=== PATIENT | male | born 1945 | race Caucasian/White ===

== ENCOUNTER → 2017-12-10 | Outpatient (CLI) | payer MEDICARE, OTHER ==
[~2017-12-10] MED LIST: ASPI325 PO
[2017-12-10 11:01] LABS: BASOPHILS ABSOLUTE AUTO 0.05 K/mm3 (0.00-0.23); BASOPHILS PERCENT AUTO 1 % (0-2); EOSINOPHILS ABSOLUTE AUTO 0.58 K/mm3 (0.00-0.68); EOSINOPHILS PERCENT AUTO 6 % (0-6); Hematocrit 41.7 % (37.0-53.0); Hemoglobin 14.6 g/dL (13.5-17.5); IMMATURE GRAN ABSOLUTE AUTO 0.02 K/mm3 (0.00-0.10); IMMATURE GRAN PERCENT AUTO 0 % (0-1); LYMPHOCYTES ABSOLUTE AUTO 1.59 K/mm3 (0.84-5.20); LYMPHOCYTES PERCENT AUTO 18 % (21-46); MONOCYTES ABSOLUTE AUTO 0.66 K/mm3 (0.16-1.47); MONOCYTES PERCENT AUTO 7 % (4-13); Mean Corpuscular Volume 86 fL (80-100); Mean Platelet Volume 9.7 fL (9.1-12.4); NEUTROPHILS PERCENT AUTO 68 % (41-73); Platelet Count 270 K/mm3 (150-400); RDW Coefficient Variation 13.6 % (11.7-14.2); RDW Standard Deviation 42.5 fL (35.1-46.3); Red Blood Cell Count 4.87 M/mm3 (4.30-5.90)
[2017-12-10 11:05] LABS: Albumin/Globulin Ratio 0.9 (0.8-1.8); Bilirubin, Total 0.6 mg/dL (0.1-1.0); Calcium, Blood 9.3 mg/dL (8.5-10.1); Creatinine, Blood 1.21 mg/dL (0.60-1.20); Globulin, Blood 4.5 g/dL (2.2-4.0); Potassium, Blood 4.3 mmol/L (3.5-5.5); Total Protein, Blood 8.5 g/dL (6.4-8.2)
== END | disposition home or self-care (01) ==
LOC: LAB EV 10:48 → LAB SHORT 10:48
PROVIDERS: Physician Assistant Medical
DX: L29.9 Pruritus, unspecified (principal)
CPT/HCPCS: 80053; 85025

== ENCOUNTER 2019-06-10 07:53 | Emergency (ER) | payer MEDICARE, OTHER ==
[~2019-06-10] VITALS: Ht 177.8 cm; Wt 68.0 kg
[2019-06-10 08:15] LABS: Chloride (POC) 106 mmol/L (98-108); Creatinine (POC) 1.2 mg/dL (0.8-1.3); Glucose (ISTAT POC) 100 mg/dL (70-99); Potassium (POC) 4.2 mmol/L (3.5-5.5); Sodium (POC) 139 mmol/L (135-148); Total CO2 (POC) 23 mmol/L (21-32)
[2019-06-10 08:17] LABS: Source, Urine Catheter
[2019-06-10 08:22] LABS: Bilirubin, Urine Neg (Neg); Blood, Urine Neg (Neg); Glucose Qualitative, Urine Neg (Neg); Ketones, Urine 3+ (Neg); Leukocyte Esterase, Urine Neg (Neg); Nitrite, Urine Neg (Neg); Protein, Urine 1+ (Neg); Specific Gravity, Urine 1.015 (1.003-1.022); Urobilinogen, Urine NORM (Normal); pH, Urine 6.5 (5.0-8.0)
[2019-06-10 08:45] LABS: Appearance, Urine Clear (Clear); Color, Urine Amber (P-Yellow)
== END 2019-06-10 09:41 | disposition home or self-care (01) ==
LOC: ER 07:53
PROVIDERS: Emergency Medicine
DX: R53.1 Weakness (principal); R07.89 Other chest pain; Z86.73 Personal history of transient ischemic attack (TIA), and cerebral infarction without residual deficits; Z87.891 Personal history of nicotine dependence
CPT/HCPCS: 51701; 80047; 85014; 99283-25

== ENCOUNTER 2019-06-11 11:26 | Inpatient (IN) | payer MEDICARE, OTHER ==
[~2019-06-11] VITALS: Ht 177.8 cm; Wt 62.6 kg
[2019-06-11 12:04] LABS: BASOPHILS ABSOLUTE AUTO 0.04 K/mm3 (0.00-0.23); BASOPHILS PERCENT AUTO 0 % (0-2); EOSINOPHILS ABSOLUTE AUTO 0.44 K/mm3 (0.00-0.68); EOSINOPHILS PERCENT AUTO 4 % (0-6); Hematocrit 46.8 % (37.0-53.0); Hemoglobin 15.8 g/dL (13.5-17.5); IMMATURE GRAN ABSOLUTE AUTO 0.04 K/mm3 (0.00-0.10); IMMATURE GRAN PERCENT AUTO 0 % (0-1); LYMPHOCYTES ABSOLUTE AUTO 1.29 K/mm3 (0.84-5.20); LYMPHOCYTES PERCENT AUTO 11 % (21-46); MONOCYTES ABSOLUTE AUTO 0.99 K/mm3 (0.16-1.47); MONOCYTES PERCENT AUTO 9 % (4-13); Mean Corpuscular HGB 30.4 pg (26.0-34.0); Mean Corpuscular HGB Conc 33.8 g/dL (31.5-36.5); Mean Corpuscular Volume 90 fL (80-100); Mean Platelet Volume 9.9 fL (9.1-12.4); NEUTROPHILS ABSOLUTE AUTO 8.83 K/mm3 (1.96-9.15); NEUTROPHILS PERCENT AUTO 76 % (41-73); Platelet Count 273 K/mm3 (150-400); RDW Standard Deviation 42.9 fL (35.1-46.3); White Blood Cell Count 11.63 K/mm3 (4.00-11.30)
[2019-06-11 12:28] LABS: Alanine Aminotransfer (ALT/SGP 28 U/L (12-78); Albumin, Blood 3.7 g/dL (3.4-5.0); Albumin/Globulin Ratio 0.9 (0.8-1.8); Alk Phos 76 U/L (50-136); Anion Gap 10 mmol/L (6-16); Aspartate Aminotrans (AST/SGOT 28 U/L (12-37); Bilirubin, Total 0.8 mg/dL (0.1-1.0); Blood Urea Nitrogen 17 mg/dL (8-24); Bun/Creatinine Ratio 17.1 (12.0-20.0); CO2, Blood 21 mmol/L (21-32); Chloride, Blood 106 mmol/L (98-108); Creatinine, Blood 0.99 mg/dL (0.60-1.20); Globulin, Blood 4.3 g/dL (2.2-4.0); Glomerular Filtration Rate >60 (60-); Glucose, Blood 120 mg/dL (70-99); Sodium, Blood 137 mmol/L (136-145); Troponin I <0.015 ng/mL (0.000-0.040)
--- NOTE | 2019-06-11 17:57 | NUR ---
PT ARRIVED TO ROOM FROM ER VIA STRETCHER. HE WAS ASSISTED TO BED AND ORIENTED TO HIS ROOM, CALL LIGHT AND NURSING STAFF. HE HAS SEVERAL FAMILY MEMBERS AT THE BEDSIDE. HIS SPEECH IS SLOW AND HE IS A/O X 4. HE PRESENTS WITH A VERY MILD LEFT SIDE FACIAL DROOP AND LEFT SIDE WEAKNESS. PT REPORTS THAT WHEN HE FELL IT WAS BECAUSE HE GOT DIZZY AND HE DOES REMEMEBR HITTING HIS HEAD. HE APPEARS TO HAVE DIFFICULTY SWALLOWING AND SAYS THAT HIS CAREGIVER AT HOME MAKES HIM SMOOTHIES. DR FOLEY WAS PAGED TO INQUIRE ABOUT A SPEECH EVAL AND THICK LIQUIDS WILL BE GIVEN FOR NOW TO SEE HOW PT TOLERATES THEM. HE IS ABLE TO MAKE HIS NEEDS KNOWN AND HAS HIS FAMILY AT THE BEDSIDE.
[2019-06-12 04:40] LABS: BASOPHILS ABSOLUTE AUTO 0.05 K/mm3 (0.00-0.23); BASOPHILS PERCENT AUTO 1 % (0-2); EOSINOPHILS ABSOLUTE AUTO 0.83 K/mm3 (0.00-0.68); EOSINOPHILS PERCENT AUTO 8 % (0-6); Hematocrit 42.3 % (37.0-53.0); Hemoglobin 14.3 g/dL (13.5-17.5); IMMATURE GRAN ABSOLUTE AUTO 0.04 K/mm3 (0.00-0.10); IMMATURE GRAN PERCENT AUTO 0 % (0-1); LYMPHOCYTES ABSOLUTE AUTO 1.51 K/mm3 (0.84-5.20); LYMPHOCYTES PERCENT AUTO 15 % (21-46); MONOCYTES ABSOLUTE AUTO 0.89 K/mm3 (0.16-1.47); MONOCYTES PERCENT AUTO 9 % (4-13); Mean Corpuscular HGB 30.8 pg (26.0-34.0); Mean Corpuscular HGB Conc 33.8 g/dL (31.5-36.5); Mean Corpuscular Volume 91 fL (80-100); Mean Platelet Volume 10.1 fL (9.1-12.4); NEUTROPHILS PERCENT AUTO 68 % (41-73); Platelet Count 250 K/mm3 (150-400); RDW Coefficient Variation 13.1 % (11.7-14.2); RDW Standard Deviation 44.2 fL (35.1-46.3); Red Blood Cell Count 4.65 M/mm3 (4.30-5.90); White Blood Cell Count 10.22 K/mm3 (4.00-11.30)
[2019-06-12 05:04] LABS: Alanine Aminotransfer (ALT/SGP 22 U/L (12-78); Albumin, Blood 3.1 g/dL (3.4-5.0); Albumin/Globulin Ratio 0.8 (0.8-1.8); Alk Phos 65 U/L (50-136); Anion Gap 7 mmol/L (6-16); Aspartate Aminotrans (AST/SGOT 21 U/L (12-37); Bilirubin, Total 0.6 mg/dL (0.1-1.0); Blood Urea Nitrogen 16 mg/dL (8-24); Bun/Creatinine Ratio 14.4 (12.0-20.0); CO2, Blood 23 mmol/L (21-32); Calcium, Blood 8.3 mg/dL (8.5-10.1); Chloride, Blood 110 mmol/L (98-108); Creatinine, Blood 1.11 mg/dL (0.60-1.20); Globulin, Blood 3.8 g/dL (2.2-4.0); Glomerular Filtration Rate >60 (60-); Glucose, Blood 98 mg/dL (70-99); Potassium, Blood 3.9 mmol/L (3.5-5.5); Sodium, Blood 140 mmol/L (136-145); Total Protein, Blood 6.9 g/dL (6.4-8.2); Troponin I <0.015 ng/mL (0.000-0.040)
--- NOTE | 2019-06-12 05:27 | NUR ---
SHIFT SUMMARY NO ACUTE EVENTS OVERNIGHT. PATIENT APPEARS UNABLE TO HANDLE SECRETIONS AT TIMES AND BECOMES CHOKED ON SALIVA. LEFT SIDE WEAKNESS. NO REPORTS OF PAIN. INCONTINENT. AAOX4 BUT SLOW TO RESPOND WITH GARBLED/SLURRED SPEECH. PATIENT SLEPT THROUGHOUT THE DIRECTOR OF SERVICES. WILL CONTINUE TO MONITOR.
--- NOTE | 2019-06-12 16:41 | NUR ---
SHIFT SUMMARY: PT REMAINS A/O X 4 WITH SLOW SLURRED SPEECH. HE HAS NO C/O PAIN OR DISCOMFORT. BREAKFAST WAS HELD UNTIL SPEECH EVAL WAS COMPLETED AND ST GAVE ORDERS TO MAKE PT NPO. DR BARNETT WAS CALLED AND UPDATED ON THIS RECOMENDATION AND THIS NURSE REQUESTED A DIRECTOR OF CARDIAC REHABILITATION CONSULT, DR BARNETT CONCURRED AND THE ORDER WAS GIVEN. PT WORKED WITH PT THIS MORNING AND WAS ABLE TO PARTICIPATE WELL. DIRECTOR OF CARDIAC REHABILITATION SAW PT AND MADE SOME RECOMENDATIONS THAT WERE DISCUSSED WITH THE DOCTOR WHO GAVE ORDERS FOR PPN WITH LIPDS TO START TONIGHT. PT CURRENTLY HAS N.S. RUNNING ORDERED. PT IS RESTING IN BED AND ABLE TO MAKE HIS NEEDS KNOWN. CALL LIGHT IS IN REACH.
[2019-06-13 05:02] LABS: Anion Gap 6 mmol/L (6-16); Blood Urea Nitrogen 22 mg/dL (8-24); Bun/Creatinine Ratio 20.4 (12.0-20.0); CO2, Blood 25 mmol/L (21-32); Calcium, Blood 8.1 mg/dL (8.5-10.1); Chloride, Blood 108 mmol/L (98-108); Creatinine, Blood 1.08 mg/dL (0.60-1.20); Glomerular Filtration Rate >60 (60-); Glucose, Blood 117 mg/dL (70-99); Potassium, Blood 3.8 mmol/L (3.5-5.5); Sodium, Blood 139 mmol/L (136-145)
--- NOTE | 2019-06-13 06:51 | NUR ---
Shift Summary: Patient slept well between cares. He continues to have left sided weakness, left facial droop, slurred speech, and swallowing issues. He was able to use the wall suction independently as needed. He is alert and oriented to questions. Assisted to reposition q2h throughout the night.
--- NOTE | 2019-06-13 13:42 | NUR ---
Initial palliative care consult: Mynor is a 73 year old gentleman with a history of HTN, CVAs, elevated PSA, urinary incontinence and a history of a hip fracture related to a fall. He was admitted to [facility] on 06/11/19 with a CVA. He is alert and oriented x 4 and sitting up in the chair during the consult. He has some difficulty with saying words, however if given time is able to be understood. He was evaluated by speech therapy this morning and his NPO status changed to pureed foods with honey thick liquids by spoon. He is able to swallow his secretions without coughing today. He states he lives alone and has a caregiver, Cee, who assists with housekeeping, laundry, shopping and transportation to appointments 8 am -12 pm Saturday - Saturday. He states he has had the caregiver for over a year. He reports he doesn't cook and doesn't drive. He has three adult children in the area (2 daughters and 1 son) from his third marriage and two children who live in [place] and [place] from his first marriage. He was about 1 year ago from his third of 36 years. He was tearful when talking about her and admits that he misses her very much. His lunch tray arrived during our visit and this ad writer observed him eating his meal. He was able to feed himself with minimal set up assistance of removing the lids off of his pears and apple juice. He was able to eat the pureed food and use a spoon for the honey thick liquids without difficulty. Only once did he cough when swallowing his apple juice. His voice was clear in between bites. He reports that he used to weigh about 190 pounds, and now he states he weighs about 130. He is unsure of the timeframe for his weight loss. His most recent albumin level is 3.1. He reports that his series of strokes has left him not able to taste food, so he reports that eating really isn't enjoyable. He did eat 100% of his lunch tray today. He mentioned that the MD talked to him about a feeding tube yesterday and he said he did not want one. He is able to reposition himself up in chair by pushing with his right leg. He is able to move his left arm and leg, however they are both weak and have a decreased ROM. He follows commands and has good eye contact during the visit. He states that his daughter has mentioned hospice. Per MD progress notes, family was given hospice as a possible option. He appears to be making some improvements at this time. He states "It's awfully slow" re: his progress. If he continues to show improvements, he is open to SNF for rehab. He would like to be able to go home, however he will likely need more assistance in his home than he currently has. He states he was open to hospice as a possible option because "It's round the clock care." Briefly explained hospice services and that nursing is available by phone 24 hours a day, but that hospice doesn't provide hands on care 24 hours/day. PPS 40-50% KPS 40-50% Nursing reports pt is a two person max assist with transfers at this time. Incontinent of urine. Able to feed himself and reposition himself in the chair with min. assist today. DNR status. PC will continue to follow for advanced care planning. If pt continues to improve, SNF for rehab is a possibility.
--- NOTE | 2019-06-13 17:21 | NUR ---
PT UPGRADED FROM NPO TO PUREE AND HONEY THICK WHICH HE HAS TOLERATED WELL. HE HAS BEEN UP FOR MEALS AND REQUIRES ASSITANCE AT THIS TIME DUE TO LEFT SIDED WEAKNESS. HE HAS HAD NO COMPLAINTS OF PAIN. PATIENT CONTINUES TO RECIEVE CLINIMIX THROUGH HIS IV ORAL INTAKE IS LOW. FAMILY WAS NOTIFIED OF DIET CHANGE , MESSAGE LEFT ON NUMBER GIVEN FOR WILLIAM.
--- NOTE | 2019-06-14 04:36 | NUR ---
Shift Summary Patient slept well between cares. Assisted to reposition q2h and change incontinece briefs. He continues to have left sided facial droop, slurred speech and left-sided weakness.
--- NOTE | 2019-06-14 16:39 | NUR ---
PATIENT HAS SLEPT MOST OF THE MORING . HE CONTINUES TO RECEIVE CLINIMIX. HE IS DOING WELL WITH HIS PUREE AND HONEYTHICK DIET. HE NEEDS ASSISTANCE WITH SET UP BUT CAN FEED HIMSELF. PATIENT HAS LEFT SIDE DROP BUT IS ABLE TO USE HIS LEFT ARM TO EAT.
--- NOTE | 2019-06-14 17:59 | NUR ---
Visited with Mynor this afternoon. He reports no change in his left sided weakness. He states he did well with his diet today and has no complaints. He did get up to [facility] with two person assist using a gait belt and a walker. He is able to bare some weight on his left leg and shuffle it. PC will continue to follow.
[2019-06-15 04:40] LABS: BASOPHILS ABSOLUTE AUTO 0.05 K/mm3 (0.00-0.23); BASOPHILS PERCENT AUTO 1 % (0-2); EOSINOPHILS ABSOLUTE AUTO 0.96 K/mm3 (0.00-0.68); EOSINOPHILS PERCENT AUTO 9 % (0-6); Hematocrit 39.1 % (37.0-53.0); Hemoglobin 13.1 g/dL (13.5-17.5); IMMATURE GRAN ABSOLUTE AUTO 0.05 K/mm3 (0.00-0.10); IMMATURE GRAN PERCENT AUTO 1 % (0-1); LYMPHOCYTES ABSOLUTE AUTO 1.43 K/mm3 (0.84-5.20); LYMPHOCYTES PERCENT AUTO 14 % (21-46); MONOCYTES ABSOLUTE AUTO 0.85 K/mm3 (0.16-1.47); MONOCYTES PERCENT AUTO 8 % (4-13); Mean Corpuscular HGB 30.8 pg (26.0-34.0); Mean Corpuscular HGB Conc 33.5 g/dL (31.5-36.5); Mean Corpuscular Volume 92 fL (80-100); Mean Platelet Volume 10.3 fL (9.1-12.4); NEUTROPHILS ABSOLUTE AUTO 7.18 K/mm3 (1.96-9.15); NEUTROPHILS PERCENT AUTO 68 % (41-73); Platelet Count 237 K/mm3 (150-400); RDW Standard Deviation 43.7 fL (35.1-46.3); Red Blood Cell Count 4.25 M/mm3 (4.30-5.90); White Blood Cell Count 10.52 K/mm3 (4.00-11.30)
[2019-06-15 05:07] LABS: Alanine Aminotransfer (ALT/SGP 25 U/L (12-78); Albumin/Globulin Ratio 0.8 (0.8-1.8); Alk Phos 58 U/L (50-136); Anion Gap 6 mmol/L (6-16); Aspartate Aminotrans (AST/SGOT 19 U/L (12-37); Bilirubin, Total 0.3 mg/dL (0.1-1.0); Blood Urea Nitrogen 25 mg/dL (8-24); Bun/Creatinine Ratio 24.3 (12.0-20.0); CO2, Blood 26 mmol/L (21-32); Calcium, Blood 8.3 mg/dL (8.5-10.1); Chloride, Blood 106 mmol/L (98-108); Creatinine, Blood 1.03 mg/dL (0.60-1.20); Globulin, Blood 3.7 g/dL (2.2-4.0); Glomerular Filtration Rate >60 (60-); Glucose, Blood 115 mg/dL (70-99); Potassium, Blood 4.5 mmol/L (3.5-5.5); Sodium, Blood 138 mmol/L (136-145); Total Protein, Blood 6.7 g/dL (6.4-8.2)
--- NOTE | 2019-06-15 05:24 | NUR ---
Shift Summary Patient slept well between cares. Required assistance to reposition q2h. He has been pleasant and cooperative, alert and oriented.
--- NOTE | 2019-06-15 18:50 | NUR ---
PATIENT A/OX4, SPEECH SLURRED BUT ABLE TO UNDERSTAND. L SIDED WEAKNESS. TOLERATING PUREE DIET WITH HONEY THICK LIQUIDS. NEEDS ASSISTANCE WITH MEALS. 20G IV TO L FA WNL, CLINIMIX INFUSING AT 75ML/HR. UP TO CHAIR FOR MEALS WITH FWW AND 2 ASSIST. PLAN IS TO D/C TO [facility] SOON TOMORROW.
--- NOTE | 2019-06-16 05:45 | NUR ---
SHIFT SUMMARY: VSS. AFEB. ALERT AND INTERACTING WITH STAFF. SPEECH SLOW BUT APPROPRIATE. DENIES PAIN. CONT WITH L SIDED WEAKNESS. EXPIRATORY RHONCHI TO L LOBES. 02 SATS 93% ON 2L VIA NC. HAS SLEPT MUCH OF THE NIGHT, NOT MAKING NEEDS KNOWN RATHER ASKS FOR ASSIST ONCE STAFF INITIATE. BED LOW, CALL BUTTON IN REACH.
--- NOTE | 2019-06-16 12:35 | NUR ---
Spoke with Imelda from PT. Imelda expresses concerns regarding Pt showing signs of giving up and not eating. Pt resting in bed upon arrival. Listened as Pt expresses fear and anxiety of inability to taste when he eats and not wanting to be a burden. He fears his quality of life will decrease. Pt admits to experiencing some depression right now but denies need for antidepressant. He states he does not want to take any medication due to possible side effects. Validated his concens and fears. Pt's lunch arrives and Pt refuses. Pt tearful at times throughout the visit. Suggested to have coversation with doctor regarding concerns of recovery and how his quality of life will be effective. Pt is agreeable with suggestion. Pt reports no other concerns at this time. Pt expresses appreciation of visit. Called and spoke with Dr Morales and relayed Pt's concerns and wanting to have conversation regarding recovery and quality of life. Palliative Care will remain available.
--- NOTE | 2019-06-16 16:00 | NUR ---
PATIENT D/C'D VIA W/C TRANSPORT TO [facility], REPORT CALLED TO MERNA. LUCIANOS, THIS SHIFT, ON RA. S/C PACKET SENT WITH TRANSPORT. PATIENT DENIES ANY QUESTIONS OR CONCERNS.
[2019-06-16] MEDS ORDERED: ASPI81CH PO (16:19)
[2019-06-16] MEDS ORDERED: ATOR40TA PO (16:20)
== END 2019-06-16 15:55 | DRG 65 ==
LOC: ER 11:26 → MEDS 15:42 → ENPENDDIS 06-16 14:41 → MEDS 06-16 15:55
PROVIDERS: Emergency Medicine; Family Medicine; ADMIT Family Medicine
DX: I63.9 Cerebral infarction, unspecified (principal); G81.94 Hemiplegia, unspecified affecting left nondominant side; I69.354 Hemiplegia and hemiparesis following cerebral infarction affecting left non-dominant side; Z51.5 Encounter for palliative care; I10 Essential (primary) hypertension; W19.XXXA Unspecified fall, initial encounter; Z87.891 Personal history of nicotine dependence; T17.900A Unspecified foreign body in respiratory tract, part unspecified causing asphyxiation, initial encounter
CPT/HCPCS: 36415; 70450; 80048; 80053; 84484; 85025; 85651; 92526; 92610; 93005; 93010; 93306; 93880; 97110; 97162; 97166; 97530; 97535; 99285-25; J1650; J7030

== ENCOUNTER → 2019-08-12 | Outpatient (CLI) | payer MEDICARE, OTHER ==
[~2019-08-12] MED LIST changes: +ASPI81CH PO; +ATOR40TA PO
== END ==
LOC: LAB SHORT 17:00 → LAB EV 17:00
DX: L02.91 Cutaneous abscess, unspecified (principal)
CPT/HCPCS: 87070; 87075; 87077; 87147; 87186; 87205

== ENCOUNTER → 2019-08-24 | Outpatient (CLI) | payer MEDICARE, OTHER ==
[~2019-08-24] MED LIST changes: +Acetaminophen-1 EAC1 PO; +Adult Glycerin1 EACH PR; +BISA10S PR; +CEPH500 PO; +Fleet Enema132 ML PR; +Milk Of Ma400 MG/5 M PO; +POTCHL20ER PO; +Pyridium100 MG PO
[2019-08-24 22:00] LABS: Bilirubin, Urine Neg (Neg); Blood, Urine 2+ (Neg); Glucose Qualitative, Urine Neg (Neg); Ketones, Urine Neg (Neg); Leukocyte Esterase, Urine 2+ (Neg); Nitrite, Urine Neg (Neg); Protein, Urine 1+ (Neg); Urobilinogen, Urine NORM (Normal)
[2019-08-24 22:07] LABS: Appearance, Urine Hazy (Clear); Color, Urine Yellow (P-Yellow)
[2019-08-24 22:08] LABS: Red Blood Cells, Urine 0-2 /hpf (0-2); Squamous Epithelial Cells Few /hpf (Few)
[2019-08-24 22:09] LABS: Bacteria Mod /hpf
== END | disposition home or self-care (01) ==
LOC: EDSTATUS 11:48 → LAB RH 11:49
PROVIDERS: Physician Assistant Medical
DX: N39.0 Urinary tract infection, site not specified (principal)
CPT/HCPCS: 81001; 87086

== ENCOUNTER 2019-09-10 03:32 | Inpatient (IN) | payer MEDICARE, OTHER ==
[~2019-09-10] VITALS: Ht 182.9 cm; Wt 65.1 kg
[~2019-09-10 03:32] MED LIST changes: -Acetaminophen-1 EAC1 PO; -Adult Glycerin1 EACH PR; -BISA10S PR; -CEPH500 PO; -Fleet Enema132 ML PR; -Milk Of Ma400 MG/5 M PO; -POTCHL20ER PO; -Pyridium100 MG PO
[2019-09-10 03:46] LABS: BASOPHILS ABSOLUTE AUTO 0.03 K/mm3 (0.00-0.23); BASOPHILS PERCENT AUTO 0 % (0-2); EOSINOPHILS ABSOLUTE AUTO 0.02 K/mm3 (0.00-0.68); EOSINOPHILS PERCENT AUTO 0 % (0-6); Hemoglobin 12.7 g/dL (13.5-17.5); IMMATURE GRAN ABSOLUTE AUTO 0.07 K/mm3 (0.00-0.10); IMMATURE GRAN PERCENT AUTO 0 % (0-1); LYMPHOCYTES PERCENT AUTO 7 % (21-46); MONOCYTES ABSOLUTE AUTO 0.72 K/mm3 (0.16-1.47); MONOCYTES PERCENT AUTO 4 % (4-13); Mean Corpuscular HGB 29.5 pg (26.0-34.0); Mean Corpuscular HGB Conc 32.6 g/dL (31.5-36.5); Mean Corpuscular Volume 91 fL (80-100); Mean Platelet Volume 10.9 fL (9.1-12.4); NEUTROPHILS ABSOLUTE AUTO 16.38 K/mm3 (1.96-9.15); NEUTROPHILS PERCENT AUTO 89 % (41-73); Platelet Count 230 K/mm3 (150-400); RDW Coefficient Variation 13.8 % (11.7-14.2); White Blood Cell Count 18.42 K/mm3 (4.00-11.30)
[2019-09-10] MEDS ORDERED: Acetaminophen-1 EAC1 PO (03:58)
[2019-09-10] MEDS ORDERED: BISA10S PR (03:58)
[2019-09-10] MEDS ORDERED: Fleet Enema132 ML PR (03:59)
[2019-09-10] MEDS ORDERED: Adult Glycerin1 EACH PR (04:00)
[2019-09-10] MEDS ORDERED: Milk Of Ma400 MG/5 M PO (04:01)
[2019-09-10 04:06] LABS: Albumin, Blood 2.6 g/dL (3.4-5.0); Albumin/Globulin Ratio 0.6 (0.8-1.8); Bilirubin, Total 0.6 mg/dL (0.1-1.0); Bun/Creatinine Ratio 13.7 (12.0-20.0); Calcium, Blood 8.6 mg/dL (8.5-10.1); Creatinine, Blood 1.82 mg/dL (0.60-1.20); Globulin, Blood 4.2 g/dL (2.2-4.0); Total Protein, Blood 6.8 g/dL (6.4-8.2)
[2019-09-10 08:42] LABS: Bun/Creatinine Ratio 14.6 (12.0-20.0); Calcium, Blood 8.1 mg/dL (8.5-10.1); Creatinine, Blood 1.51 mg/dL (0.60-1.20); Potassium, Blood 4.5 mmol/L (3.5-5.5)
[2019-09-10 09:10] LABS: Source, Urine Catheter
[2019-09-10 09:14] LABS: Bilirubin, Urine Neg (Neg); Blood, Urine 3+ (Neg); Glucose Qualitative, Urine 3+ (Neg); Ketones, Urine Neg (Neg); Leukocyte Esterase, Urine 3+ (Neg); Nitrite, Urine Neg (Neg); Protein, Urine 3+ (Neg); Urobilinogen, Urine NORM (Normal)
[2019-09-10 09:20] LABS: Appearance, Urine Cloudy (Clear); Color, Urine Yellow (P-Yellow)
[2019-09-10 09:23] LABS: White Blood Cells, Urine TNTC /hpf (0-5)
[2019-09-10 09:24] LABS: Bacteria Many /hpf; Squamous Epithelial Cells Rare /hpf (Few)
[2019-09-10 09:25] LABS: U Amphetamine Screen Not Detected; U Barbituate Screen Not Detected; U Benzodiazapine Screen Not Detected; U Buprenorphine Screen Not Detected; U Cannabinoids Screen DETECTED; U Cocaine Screen Not Detected; U Methadone Screen Not Detected; U Methamphetamine Screen Not Detected; U Opiates Screen Not Detected; U Oxycodone Screen Not Detected; U Propoxyphene Screen Not Detected
--- NOTE | 2019-09-10 14:35 | NUR ---
TALKED TO ABOUT DIET. ADVANCE DIET TOLERATED. DISCUSS LACTIC ACID WHICH WENT FROM 2.3 TO 5 AT 8AM. TO DRAW UPON ARRIVAL TO UNIT.
--- NOTE | 2019-09-10 18:14 | NUR ---
PATIENT ARRIVES TO FLOOR ABOUT 3PM FROM E.R. FOR ALTERED MENTAL STATIS. ALERT, ORIENTED X 3. UNSURE OF DATE. KNOWS [facility] L[facility]. HX OF CVA W/LEFT SIDED WEAKNESS. ABLE TO ANSWER ALL QUESTIONS ON ADMIT EXCEPT MEDICATIONS. WOUND LT LATERAL HIP. DRESSED.COOPERATIVE. PLEASANT. UNLABORED RESPIRATIONS.WCTM.
--- NOTE | 2019-09-10 23:47 | NUR ---
PHYSICIAN COMMUNICATION CONTACTED SABA WEBBER, THE MDM SR PHYSICIAN, TO REPORT THAT THE PATIENT WAS RETAINING URINE AND HAVING DYSURIA. PATIENT HAD 551 ML IN HIS BLADDER ACCORDING TO THE BLADDER SCAN. SABA ORDERS A STRAIGHT CATH X1 NOW AND BLADDER SCAN NEEDED.
--- NOTE | 2019-09-11 04:54 | NUR ---
SHIFT SUMMARY PATIENT ALERT AND ORIENTED. IS HAVING URINARY RETENTION THAT REQUIRED THE PATIENT TO BE STRAIGHT CATHED ONCE OVERNIGHT. BOTH IVS PATENT AND FLUSHED. BED IN LOWEST POSITION WITH WHEELS LOCKED. CALL LIGHT WITHIN REACH. REPORT GIVEN TO ONCOMING RN.
--- NOTE | 2019-09-11 09:17 | NUR ---
TALKED TO ABOUT B.P. 93/51-87. FLUIDS? LACTIC ACID WAS 2.4 THEN 5 AND THEN TREND DOWN YESTERDAY AT 3PM TO 2.4. NO LABS TODAY. ORDER NS @125/HR AND LABS OF CBC, BMP, LACTIC.
[2019-09-11 09:51] LABS: BASOPHILS ABSOLUTE AUTO 0.02 K/mm3 (0.00-0.23); BASOPHILS PERCENT AUTO 0 % (0-2); EOSINOPHILS ABSOLUTE AUTO 0.05 K/mm3 (0.00-0.68); EOSINOPHILS PERCENT AUTO 1 % (0-6); Hematocrit 39.6 % (37.0-53.0); Hemoglobin 12.8 g/dL (13.5-17.5); IMMATURE GRAN ABSOLUTE AUTO 0.03 K/mm3 (0.00-0.10); IMMATURE GRAN PERCENT AUTO 0 % (0-1); LYMPHOCYTES ABSOLUTE AUTO 0.54 K/mm3 (0.84-5.20); LYMPHOCYTES PERCENT AUTO 6 % (21-46); MONOCYTES ABSOLUTE AUTO 0.44 K/mm3 (0.16-1.47); MONOCYTES PERCENT AUTO 5 % (4-13); Mean Corpuscular HGB 29.8 pg (26.0-34.0); Mean Corpuscular HGB Conc 32.3 g/dL (31.5-36.5); Mean Corpuscular Volume 92 fL (80-100); Mean Platelet Volume 10.6 fL (9.1-12.4); NEUTROPHILS ABSOLUTE AUTO 8.71 K/mm3 (1.96-9.15); NEUTROPHILS PERCENT AUTO 89 % (41-73); Platelet Count 198 K/mm3 (150-400); RDW Standard Deviation 47.4 fL (35.1-46.3); White Blood Cell Count 9.79 K/mm3 (4.00-11.30)
[2019-09-11 10:05] LABS: Anion Gap 5 mmol/L (6-16); Blood Urea Nitrogen 13 mg/dL (8-24); Bun/Creatinine Ratio 12.7 (12.0-20.0); CO2, Blood 23 mmol/L (21-32); Calcium, Blood 8.2 mg/dL (8.5-10.1); Chloride, Blood 110 mmol/L (98-108); Creatinine, Blood 1.02 mg/dL (0.60-1.20); Glomerular Filtration Rate >60 (60-); Glucose, Blood 160 mg/dL (70-99); Potassium, Blood 3.4 mmol/L (3.5-5.5); Sodium, Blood 138 mmol/L (136-145)
--- NOTE | 2019-09-11 16:36 | NUR ---
ALERT. ORIENTED. OOB X 2 TO CHAIR. 2 PERSON MODERATE ASSIST W/GAIT BELT FROM BED TO CHAIR. POOR APPETITE DOES NOT HAVE ANY TEETH. WILL CHANGE DIET TO FULL LIQUID. RESTING MOST OF DAY. NO ACUTE CHANGES. WCTM
--- NOTE | 2019-09-12 03:09 | NUR ---
REPOSITIONED AND CHANGED WHEN INCONT HOB ELEVATED. INTERMITTENT AGITATED AFFECT AND TERSE STATEMENTS TO STAFF. RESTING QUIETLY AT THIS TIME. ISOLATION PRECAUTIONS MAINTAINED. CALL LIGHT IN REACH.
--- NOTE | 2019-09-12 12:43 | NUR ---
PATIENT DID NOT WANT TO EAT LUNCH. HE DENIED HIS TRAY WHEN IT WAS BROUGHT INTO THE ROOM. RN NOTIFIED
[2019-09-12] MEDS ORDERED: Pyridium100 MG PO (16:22)
[2019-09-12] MEDS ORDERED: CEPH500 PO (16:23)
--- NOTE | 2019-09-12 18:07 | NUR ---
Shift Summary 73 yo male, AOx3. Pt c/o pain in penis and bladder when voiding, refusing Acetaminophen, will medicated with Pyridium as needed. Plan was to discharge back to [facility] today; however, pt had declined physical therapy and therefore couldn't d/c today. After discussing with patient the need to be evaluated by phyical therapy, pt agreed and finally worked with therapy. Plan is to discharge tomorrow 09/13, med rec completed by this RN. Pt has been in bed most of this shift, poor appetite. No other concerns.
--- NOTE | 2019-09-13 04:16 | NUR ---
AWAKE AT INTERVALS THIS SHIFT, CALLED OUT A FEW TIMES FOR "HELP" AND UPON ENTERING ROOM, VOICED INCONTENENCE OF BOWEL AND BLADDER. BLADDER SCANNED AT HS, 669 CC NOTED, STRAIGHT CATHED PER FISHER NET ORDERS OBTAINED APPROX 400 CC. IVF INFUSING. ANTIBIOTICS DC'D PER MD ORDERS. POSSIBLE DC THIS AM - SEE MD ORDERS. CALL LIGHT IN REACH. CONTACT PRECAUTIONS CONTINUE.
[2019-09-13 05:38] LABS: BASOPHILS ABSOLUTE AUTO 0.04 K/mm3 (0.00-0.23); BASOPHILS PERCENT AUTO 0 % (0-2); EOSINOPHILS PERCENT AUTO 4 % (0-6); Hematocrit 41.1 % (37.0-53.0); Hemoglobin 13.5 g/dL (13.5-17.5); IMMATURE GRAN ABSOLUTE AUTO 0.05 K/mm3 (0.00-0.10); IMMATURE GRAN PERCENT AUTO 0 % (0-1); LYMPHOCYTES ABSOLUTE AUTO 1.42 K/mm3 (0.84-5.20); LYMPHOCYTES PERCENT AUTO 11 % (21-46); MONOCYTES ABSOLUTE AUTO 1.16 K/mm3 (0.16-1.47); MONOCYTES PERCENT AUTO 9 % (4-13); Mean Corpuscular HGB 29.5 pg (26.0-34.0); Mean Corpuscular HGB Conc 32.8 g/dL (31.5-36.5); Mean Corpuscular Volume 90 fL (80-100); Mean Platelet Volume 10.4 fL (9.1-12.4); NEUTROPHILS ABSOLUTE AUTO 9.65 K/mm3 (1.96-9.15); NEUTROPHILS PERCENT AUTO 75 % (41-73); Platelet Count 221 K/mm3 (150-400); RDW Coefficient Variation 13.9 % (11.7-14.2); RDW Standard Deviation 45.8 fL (35.1-46.3); Red Blood Cell Count 4.57 M/mm3 (4.30-5.90); White Blood Cell Count 12.82 K/mm3 (4.00-11.30)
[2019-09-13 06:12] LABS: Anion Gap 9 mmol/L (6-16); Blood Urea Nitrogen 6 mg/dL (8-24); Bun/Creatinine Ratio 7.6 (12.0-20.0); CO2, Blood 24 mmol/L (21-32); Calcium, Blood 8.4 mg/dL (8.5-10.1); Chloride, Blood 107 mmol/L (98-108); Creatinine, Blood 0.79 mg/dL (0.60-1.20); Glomerular Filtration Rate >60 (60-); Glucose, Blood 107 mg/dL (70-99); Potassium, Blood 3.2 mmol/L (3.5-5.5); Sodium, Blood 140 mmol/L (136-145)
--- NOTE | 2019-09-13 13:33 | NUR ---
EVANS CATHETER REPORTED TO DR. POSADAS RE BLADDER SCAN > 500 AND NIGHT NURSE REPORTING BLADDER SCAN > 500 TWICE FOR WHICH HE HAD TO STRAIGHT CATH. PER DR. POSADAS, INSERT EVANS FOR RETENTION.
[2019-09-13] MEDS ORDERED: POTCHL20ER PO (14:34)
--- NOTE | 2019-09-13 16:26 | NUR ---
Discharge Summary A/Ox3, pleasant and cooperative with care, able to make needs known. Pt d/c to [facility] with bernardo for retention purposes. Discharge paperwork sent with patient and faxed a copy to [facility]. Transported by [facility] with w/c. Report called and given to receiving nurse Bailey. Personal belongings sent with patient, IV removed.
== END 2019-09-13 16:16 | DRG 871 ==
LOC: ER 03:32 → ERHOLD 05:34 → MEDS 14:37
PROVIDERS: Emergency Medicine; Internal Medicine; ADMIT Hospitalist
DX: A40.8 Other streptococcal sepsis (principal); G93.41 Metabolic encephalopathy; G92 Toxic encephalopathy; J69.0 Pneumonitis due to inhalation of food and vomit; N17.9 Acute kidney failure, unspecified; I69.354 Hemiplegia and hemiparesis following cerebral infarction affecting left non-dominant side; N39.0 Urinary tract infection, site not specified; R65.20 Severe sepsis without septic shock; R33.8 Other retention of urine; E87.5 Hyperkalemia; E87.6 Hypokalemia; T40.7X1A Poisoning by cannabis (derivatives), accidental (unintentional), initial encounter; I10 Essential (primary) hypertension; I69.391 Dysphagia following cerebral infarction; R13.10 Dysphagia, unspecified; Z87.891 Personal history of nicotine dependence; Z66 Do not resuscitate
CPT/HCPCS: 36415; 51701; 51798; 71045; 76705; 80048; 80053; 81001; 82550; 83605; 83690; 85025; 87040; 87086; 93005; 93010; 94644; 96361-59; 96372-59; 96374-59; 96375-59; 97110; 97162; 97166; 97530; 99285-25; A9270; A9270-GY; J0696; J1644; J1815; J7030; J7050

== ENCOUNTER → 2020-12-09 | Outpatient (CLI) | payer OTHER ==
[~2020-12-09] MED LIST changes: +Acetaminophen-1 EAC1 PO; +Adult Glycerin1 EACH PR; +BISA10S PR; +CEPH500 PO; +Fleet Enema132 ML PR; +Milk Of Ma400 MG/5 M PO; +POTCHL20ER PO; +Pyridium100 MG PO
[2020-12-09 15:50] LABS: Bun/Creatinine Ratio 12.2 (12.0-20.0); Calcium, Blood 9.1 mg/dL (8.5-10.1); Creatinine, Blood 1.48 mg/dL (0.60-1.20); Potassium, Blood 3.8 mmol/L (3.5-5.5)
== END | disposition home or self-care (01) ==
LOC: LAB RH 13:10 → EDSTATUS 13:17
PROVIDERS: Physician Assistant Medical
DX: N17.9 Acute kidney failure, unspecified (principal)
CPT/HCPCS: 80048

== ENCOUNTER → 2021-03-17 | Outpatient (CLI) | payer OTHER ==
[2021-03-18 16:50] LABS: CORONAVIRUS (COVID19) CSH-NRL Negative (Negative)
== END | disposition home or self-care (01) ==
LOC: LAB RH 12:35 → EDSTATUS 15:15
PROVIDERS: Internal Medicine
DX: U07.1 COVID-19 (principal)
CPT/HCPCS: U0003

== ENCOUNTER → 2021-05-08 | Outpatient (CLI) | payer OTHER ==
[2021-05-08 17:30] LABS: Appearance, Urine Turbid (Clear); Bilirubin, Urine Neg (Neg); Blood, Urine 3+ (Neg); Color, Urine Yellow (P-Yellow); Glucose Qualitative, Urine Neg (Neg); Ketones, Urine Neg (Neg); Leukocyte Esterase, Urine 3+ (Neg); Nitrite, Urine Pos (Neg); Protein, Urine 3+ (Neg); Urobilinogen, Urine NORM (Normal)
[2021-05-08 17:42] LABS: Bacteria Many /hpf; Red Blood Cells, Urine TNTC /hpf (0-2); Squamous Epithelial Cells Rare /hpf (Few); Transitional Epithelial Cells Rare /hpf (0-Rare); White Blood Cells, Urine TNTC /hpf (0-5)
== END | disposition home or self-care (01) ==
LOC: EDSTATUS 10:39 → LAB RH 16:06
PROVIDERS: Registered Nurse Registered Nurse First Assistant
DX: N39.0 Urinary tract infection, site not specified (principal)
CPT/HCPCS: 81001; 87077; 87086; 87186

== ENCOUNTER → 2021-06-07 | Outpatient (CLI) | payer OTHER ==
[2021-06-07 16:31] LABS: Hematocrit 45.9 % (37.0-53.0); Hemoglobin 14.7 g/dL (13.5-17.5); Mean Corpuscular HGB 29.3 pg (26.0-34.0); Mean Corpuscular Volume 92 fL (80-100); Mean Platelet Volume 11.3 fL (9.1-12.4); Platelet Count 158 K/mm3 (150-400); RDW Coefficient Variation 14.4 % (11.7-14.2); RDW Standard Deviation 48.6 fL (35.1-46.3); Red Blood Cell Count 5.01 M/mm3 (4.30-5.90); White Blood Cell Count 6.23 K/mm3 (4.00-11.30)
[2021-06-07 16:32] LABS: Appearance, Urine Clear (Clear); Bilirubin, Urine Neg (Neg); Blood, Urine 3+ (Neg); Color, Urine Yellow (P-Yellow); Glucose Qualitative, Urine Neg (Neg); Ketones, Urine Neg (Neg); Leukocyte Esterase, Urine 1+ (Neg); Nitrite, Urine Neg (Neg); Protein, Urine 1+ (Neg); Specific Gravity, Urine 1.015 (1.003-1.022); Urobilinogen, Urine NORM (Normal)
[2021-06-07 17:12] LABS: Renal Epithelial Few /hpf (0-Rare)
[2021-06-07 17:13] LABS: Bacteria Few /hpf; Squamous Epithelial Cells Not Seen /hpf (Few); Transitional Epithelial Cells Rare /hpf (0-Rare)
== END | disposition home or self-care (01) ==
LOC: EDSTATUS 09:23 → LAB RH 15:37
PROVIDERS: Physician Assistant Medical
DX: N39.0 Urinary tract infection, site not specified (principal)
CPT/HCPCS: 81001; 85027; 87077; 87086; 87186

== ENCOUNTER → 2021-06-08 | Outpatient (CLI) | payer OTHER ==
[2021-06-08 11:01] LABS: BASOPHILS ABSOLUTE AUTO 0.05 K/mm3 (0.00-0.23); BASOPHILS PERCENT AUTO 1 % (0-2); EOSINOPHILS ABSOLUTE AUTO 0.45 K/mm3 (0.00-0.68); EOSINOPHILS PERCENT AUTO 6 % (0-6); Hematocrit 41.9 % (37.0-53.0); Hemoglobin 13.9 g/dL (13.5-17.5); IMMATURE GRAN ABSOLUTE AUTO 0.02 K/mm3 (0.00-0.10); IMMATURE GRAN PERCENT AUTO 0 % (0-1); LYMPHOCYTES ABSOLUTE AUTO 1.53 K/mm3 (0.84-5.20); LYMPHOCYTES PERCENT AUTO 20 % (21-46); MONOCYTES ABSOLUTE AUTO 0.53 K/mm3 (0.16-1.47); MONOCYTES PERCENT AUTO 7 % (4-13); Mean Corpuscular HGB 29.5 pg (26.0-34.0); Mean Corpuscular HGB Conc 33.2 g/dL (31.5-36.5); Mean Corpuscular Volume 89 fL (80-100); Mean Platelet Volume 10.3 fL (9.1-12.4); NEUTROPHILS ABSOLUTE AUTO 5.18 K/mm3 (1.96-9.15); NEUTROPHILS PERCENT AUTO 67 % (41-73); Platelet Count 240 K/mm3 (150-400); RDW Coefficient Variation 14.2 % (11.7-14.2); RDW Standard Deviation 45.9 fL (35.1-46.3); Red Blood Cell Count 4.71 M/mm3 (4.30-5.90); White Blood Cell Count 7.76 K/mm3 (4.00-11.30)
[2021-06-08 11:23] LABS: Albumin/Globulin Ratio 0.6 (0.8-1.8); Bilirubin, Total 0.5 mg/dL (0.1-1.0); Bun/Creatinine Ratio 12.3 (12.0-20.0); Calcium, Blood 8.8 mg/dL (8.5-10.1); Creatinine, Blood 1.22 mg/dL (0.60-1.20); Globulin, Blood 4.7 g/dL (2.2-4.0); Potassium, Blood 4.2 mmol/L (3.5-5.5); Total Protein, Blood 7.7 g/dL (6.4-8.2)
== END | disposition home or self-care (01) ==
LOC: LAB RH 08:40 → EDSTATUS 09:24
PROVIDERS: Physician Assistant Medical
DX: N40.1 Benign prostatic hyperplasia with lower urinary tract symptoms (principal); R79.89 Other specified abnormal findings of blood chemistry
CPT/HCPCS: 80053; 85025

== ENCOUNTER → 2021-06-17 | Outpatient (CLI) | payer OTHER ==
[2021-06-17 11:53] LABS: Creatinine, Blood 1.52 mg/dL (0.60-1.20)
== END | disposition home or self-care (01) ==
LOC: EDSTATUS 09:25 → LAB RH 10:15
PROVIDERS: Internal Medicine
DX: I63.9 Cerebral infarction, unspecified (principal); N39.0 Urinary tract infection, site not specified; G81.94 Hemiplegia, unspecified affecting left nondominant side
CPT/HCPCS: 82565

== ENCOUNTER → 2021-06-26 | Outpatient (CLI) | payer OTHER ==
[2021-06-26 15:40] LABS: Bun/Creatinine Ratio 14.3 (12.0-20.0); Creatinine, Blood 1.33 mg/dL (0.60-1.20); Potassium, Blood 4.3 mmol/L (3.5-5.5)
== END | disposition home or self-care (01) ==
LOC: EDSTATUS 09:27 → LAB RH 13:25
PROVIDERS: Physician Assistant Medical
DX: I10 Essential (primary) hypertension (principal)
CPT/HCPCS: 80048

== ENCOUNTER → 2021-12-15 | Outpatient (CLI) | payer MEDICARE, OTHER ==
[~2021-12-15] MED LIST changes: +ACET325 PO; +MEROPENEM1 G1 IV; +METO25 PO; +ONDA4ODT MM; +VISBIOME 112.51 EACH PO
[2021-12-15 11:03] LABS: Creatinine, Blood 1.2 mg/dL (0.60-1.20)
== END | disposition home or self-care (01) ==
LOC: LAB RH 08:30 → EDSTATUS 14:56
PROVIDERS: Internal Medicine
DX: I63.9 Cerebral infarction, unspecified (principal)
CPT/HCPCS: 82565

== ENCOUNTER → 2022-01-12 | Outpatient (CLI) | payer MEDICARE, OTHER ==
[2022-01-12 12:17] LABS: Hematocrit 43.1 % (37.0-53.0); Hemoglobin 14.2 g/dL (13.5-17.5); Mean Corpuscular HGB 29.8 pg (26.0-34.0); Mean Corpuscular HGB Conc 32.9 g/dL (31.5-36.5); Mean Corpuscular Volume 90 fL (80-100); Mean Platelet Volume 11.6 fL (9.1-12.4); Platelet Count 269 K/mm3 (150-400); RDW Coefficient Variation 13.7 % (11.7-14.2); Red Blood Cell Count 4.77 M/mm3 (4.30-5.90); White Blood Cell Count 16.88 K/mm3 (4.00-11.30)
[2022-01-12 12:37] LABS: Albumin, Blood 3.3 g/dL (3.4-5.0); Albumin/Globulin Ratio 0.7 (0.8-1.8); Bilirubin, Total 0.4 mg/dL (0.1-1.0); Calcium, Blood 9.1 mg/dL (8.5-10.1); Creatinine, Blood 1.2 mg/dL (0.60-1.20); Globulin, Blood 4.9 g/dL (2.2-4.0); Total Protein, Blood 8.2 g/dL (6.4-8.2)
== END | disposition home or self-care (01) ==
LOC: LAB RH 11:17 → EDSTATUS 12:56
PROVIDERS: Internal Medicine
DX: R11.2 Nausea with vomiting, unspecified (principal)
CPT/HCPCS: 80053; 85027

== ENCOUNTER 2022-01-13 12:28 | Inpatient (IN) | payer MEDICARE, OTHER ==
[~2022-01-13] VITALS: Ht 177.8 cm; Wt 57.3 kg
[~2022-01-13 12:28] MED LIST changes: -ACET325 PO; -MEROPENEM1 G1 IV; -METO25 PO; -ONDA4ODT MM; -VISBIOME 112.51 EACH PO
[2022-01-13] MEDS ORDERED: ONDA4ODT MM (12:52)
[2022-01-13 14:12] LABS: BASOPHILS ABSOLUTE AUTO 0.09 K/mm3 (0.00-0.23); BASOPHILS PERCENT AUTO 0 % (0-2); EOSINOPHILS PERCENT AUTO 0 % (0-6); Hematocrit 49.5 % (37.0-53.0); Hemoglobin 16.6 g/dL (13.5-17.5); IMMATURE GRAN ABSOLUTE AUTO 0.35 K/mm3 (0.00-0.10); IMMATURE GRAN PERCENT AUTO 1 % (0-1); LYMPHOCYTES ABSOLUTE AUTO 1.03 K/mm3 (0.84-5.20); LYMPHOCYTES PERCENT AUTO 3 % (21-46); MONOCYTES ABSOLUTE AUTO 1.93 K/mm3 (0.16-1.47); MONOCYTES PERCENT AUTO 6 % (4-13); Mean Corpuscular HGB 29.3 pg (26.0-34.0); Mean Corpuscular HGB Conc 33.5 g/dL (31.5-36.5); Mean Corpuscular Volume 87 fL (80-100); NEUTROPHILS ABSOLUTE AUTO 31.84 K/mm3 (1.96-9.15); NEUTROPHILS PERCENT AUTO 90 % (41-73); Platelet Count 365 K/mm3 (150-400); RDW Coefficient Variation 13.9 % (11.7-14.2); RDW Standard Deviation 44.7 fL (35.1-46.3); Red Blood Cell Count 5.67 M/mm3 (4.30-5.90); White Blood Cell Count 35.24 K/mm3 (4.00-11.30)
[2022-01-13 14:24] LABS: Albumin, Blood 3.1 g/dL (3.4-5.0); Albumin/Globulin Ratio 0.6 (0.8-1.8); Bilirubin, Total 0.8 mg/dL (0.1-1.0); Bun/Creatinine Ratio 21.9 (12.0-20.0); Calcium, Blood 9.1 mg/dL (8.5-10.1); Creatinine, Blood 1.28 mg/dL (0.60-1.20); Globulin, Blood 5.5 g/dL (2.2-4.0); Total Protein, Blood 8.6 g/dL (6.4-8.2)
[2022-01-13 14:44] LABS: Source, Urine Clean Catch
[2022-01-13 14:49] LABS: Appearance, Urine Turbid (Clear); Bilirubin, Urine Neg (Neg); Blood, Urine 3+ (Neg); Color, Urine Brown (P-Yellow); Glucose Qualitative, Urine Neg (Neg); Ketones, Urine 1+ (Neg); Leukocyte Esterase, Urine 3+ (Neg); Nitrite, Urine Neg (Neg); Protein, Urine 3+ (Neg); Specific Gravity, Urine 1.025 (1.003-1.022); Urobilinogen, Urine NORM (Normal)
[2022-01-13 14:59] LABS: Bacteria Many /hpf; Hyaline Casts 0-2 /lpf (0-2); RBC Cast 0-2 /lpf (0); Red Blood Cells, Urine TNTC /hpf (0-2); Squamous Epithelial Cells Rare /hpf (Few); White Blood Cells, Urine TNTC /hpf (0-5)
[2022-01-13 15:00] LABS: WBC Cast 0-2 /lpf (0)
[2022-01-13 16:57] LABS: SARS-Cov-2 (COVID-19) PCR, MMC NEGATIVE (NEGATIVE)
--- NOTE | 2022-01-14 05:33 | NUR ---
SHIFT [id number] YR M ADMITTED ON 01/13/22 FOR SEPSIS UTI. DNR. NO ACUTE CHANGES THIS SHIFT. PT SLEPT FOR MOST OF THE SHIFT AND GOT GRUMPY WHEN HIS LIGHT WAS TURNED ON. ORDER FOR EVANS IS IN BUT PT REFUSED TO ALLOW THIS NURSE TO PLACE IT. HE GOT VERY UPSET WHEN IT WAS SUGGESTED AND BEGAN CURSING AND FLAT OUT REFUSED IT. FLUIDS RUNNING AND PT BEING MEDICATED PER EMAR.
[2022-01-14 06:36] LABS: Albumin, Blood 2.3 g/dL (3.4-5.0); Albumin/Globulin Ratio 0.5 (0.8-1.8); Bilirubin, Total 0.7 mg/dL (0.1-1.0); Bun/Creatinine Ratio 24.5 (12.0-20.0); Creatinine, Blood 1.1 mg/dL (0.60-1.20); Globulin, Blood 4.3 g/dL (2.2-4.0); Potassium, Blood 3.9 mmol/L (3.5-5.5)
[2022-01-14 06:37] LABS: Total Protein, Blood 6.6 g/dL (6.4-8.2)
[2022-01-14 10:38] LABS: BASOPHILS ABSOLUTE AUTO 0.06 K/mm3 (0.00-0.23); BASOPHILS PERCENT AUTO 0 % (0-2); EOSINOPHILS ABSOLUTE AUTO 0.01 K/mm3 (0.00-0.68); EOSINOPHILS PERCENT AUTO 0 % (0-6); Hematocrit 41.9 % (37.0-53.0); Hemoglobin 13.5 g/dL (13.5-17.5); IMMATURE GRAN ABSOLUTE AUTO 0.25 K/mm3 (0.00-0.10); IMMATURE GRAN PERCENT AUTO 1 % (0-1); LYMPHOCYTES ABSOLUTE AUTO 1.47 K/mm3 (0.84-5.20); LYMPHOCYTES PERCENT AUTO 5 % (21-46); MONOCYTES PERCENT AUTO 6 % (4-13); Mean Corpuscular HGB 29.7 pg (26.0-34.0); Mean Corpuscular HGB Conc 32.2 g/dL (31.5-36.5); Mean Platelet Volume 11.4 fL (9.1-12.4); NEUTROPHILS ABSOLUTE AUTO 28.02 K/mm3 (1.96-9.15); NEUTROPHILS PERCENT AUTO 88 % (41-73); Platelet Count 305 K/mm3 (150-400); RDW Coefficient Variation 14.2 % (11.7-14.2); RDW Standard Deviation 48.1 fL (35.1-46.3); Red Blood Cell Count 4.55 M/mm3 (4.30-5.90); White Blood Cell Count 31.81 K/mm3 (4.00-11.30)
[2022-01-14 10:45] LABS: Mean Corpuscular Volume 92 fL (80-100)
--- NOTE | 2022-01-14 18:04 | NUR ---
SHIFT SUMMARY: TACHYCARDIC 100-130'S SUSTAINED; DR. LIMA NOTIFIED. IVF STOPPED AND LOW DOSE METOPROLOL ORDERED. A&O X 1, IRRITABLE THIS MORNING D/T BEING NPO, WANTED WATER AND WOULD NOT COOPERATE UNTIL HE GOT IT. NPO CHANGED TO PUREE DIET, TOLERATING BUT DOES NOT LIKE THE TEXTURE, WILL DRINK CHOCOLATE ENSURE. ABLE TO SUCTION SELF. DENIED PAIN. MORE COOPERATIVE THIS AFTERNOON. INCONTINENT OF B&B; BLADDER SCAN SHOWED > 328 ML, DENIED DISCOMFORT, URINE IS VERY DARK. HAD VISIT FROM FAMILY THIS AFTERNOON.
[2022-01-15 05:20] LABS: BASOPHILS ABSOLUTE AUTO 0.04 K/mm3 (0.00-0.23); BASOPHILS PERCENT AUTO 0 % (0-2); EOSINOPHILS ABSOLUTE AUTO 0.02 K/mm3 (0.00-0.68); EOSINOPHILS PERCENT AUTO 0 % (0-6); Hematocrit 37.4 % (37.0-53.0); Hemoglobin 12.1 g/dL (13.5-17.5); IMMATURE GRAN ABSOLUTE AUTO 0.23 K/mm3 (0.00-0.10); IMMATURE GRAN PERCENT AUTO 1 % (0-1); LYMPHOCYTES ABSOLUTE AUTO 1.17 K/mm3 (0.84-5.20); LYMPHOCYTES PERCENT AUTO 5 % (21-46); MONOCYTES ABSOLUTE AUTO 1.42 K/mm3 (0.16-1.47); MONOCYTES PERCENT AUTO 6 % (4-13); Mean Corpuscular HGB 29.5 pg (26.0-34.0); Mean Corpuscular HGB Conc 32.4 g/dL (31.5-36.5); Mean Corpuscular Volume 91 fL (80-100); Mean Platelet Volume 11.5 fL (9.1-12.4); NEUTROPHILS ABSOLUTE AUTO 19.59 K/mm3 (1.96-9.15); NEUTROPHILS PERCENT AUTO 87 % (41-73); Platelet Count 230 K/mm3 (150-400); RDW Coefficient Variation 14.2 % (11.7-14.2); RDW Standard Deviation 48.2 fL (35.1-46.3); White Blood Cell Count 22.47 K/mm3 (4.00-11.30)
--- NOTE | 2022-01-15 07:14 | NUR ---
A&OTOSELF. PT CONFUSED AND AGITATED AT TIMES. V/S WNL. BEDREST. IV L) AC. HOB AT 90 DEGREES FOR 20 MINS AFTER DRINKING OR MEALS. PUREED DIET. PILLS IN APPLE SAUCE. INCONTINENT OF URINE/BOWEL. WILL CONTINUE TO MONITOR.
--- NOTE | 2022-01-15 17:10 | NUR ---
summary NO ACUTE CHANGES T/O SHIFT. PT ORIENTED TO SELF. SLEPT FOR FIRST HALF OF DAY. ADMINISTERED MEDS PER ORDERS. CALL LIGHT IN REACH. BED ALARM ON.
--- NOTE | 2022-01-16 05:27 | NUR ---
A & O TO SELF. REORIENTED TO TIME/PLACE & EVENT. ROLLS SIDE TO SIDE WELL. 2-ASSIST. INCONTINENT OF URINE & BOWEL. PUREED DIET. PILLS WHOLE IN APPLE SAUCE. NO BM THIS SHIFT. TURNED Q2HRS. HELD HS METROPOLOL. DRINKS NORMAL FLUIDS. CONTACT PRECAUTIONS: ESBL. DYSPHAGIA. IV L) AC. TELE: SR 100. WILL CONTINUE TO MONITOR.
[2022-01-16 08:38] LABS: BASOPHILS ABSOLUTE AUTO 0.05 K/mm3 (0.00-0.23); BASOPHILS PERCENT AUTO 0 % (0-2); EOSINOPHILS ABSOLUTE AUTO 0.17 K/mm3 (0.00-0.68); EOSINOPHILS PERCENT AUTO 1 % (0-6); Hematocrit 36.6 % (37.0-53.0); Hemoglobin 11.8 g/dL (13.5-17.5); IMMATURE GRAN ABSOLUTE AUTO 0.08 K/mm3 (0.00-0.10); IMMATURE GRAN PERCENT AUTO 1 % (0-1); LYMPHOCYTES ABSOLUTE AUTO 1.17 K/mm3 (0.84-5.20); LYMPHOCYTES PERCENT AUTO 7 % (21-46); MONOCYTES ABSOLUTE AUTO 1.33 K/mm3 (0.16-1.47); MONOCYTES PERCENT AUTO 8 % (4-13); Mean Corpuscular HGB 29.4 pg (26.0-34.0); Mean Corpuscular HGB Conc 32.2 g/dL (31.5-36.5); Mean Corpuscular Volume 91 fL (80-100); Mean Platelet Volume 10.9 fL (9.1-12.4); NEUTROPHILS ABSOLUTE AUTO 14.51 K/mm3 (1.96-9.15); NEUTROPHILS PERCENT AUTO 84 % (41-73); Platelet Count 197 K/mm3 (150-400); Red Blood Cell Count 4.02 M/mm3 (4.30-5.90); White Blood Cell Count 17.31 K/mm3 (4.00-11.30)
[2022-01-16 08:54] LABS: Potassium, Blood 3.7 mmol/L (3.5-5.5)
[2022-01-16] MEDS ORDERED: MEROPENEM1 G1 IV (11:36)
[2022-01-16] MEDS ORDERED: ACET325 PO (11:36)
[2022-01-16] MEDS ORDERED: METO25 PO (11:37)
[2022-01-16] MEDS ORDERED: VISBIOME 112.51 EACH PO (11:37)
--- NOTE | 2022-01-16 17:55 | NUR ---
SHIFT SUMMARY- PT A&O X2. PT PLEASANT ENGER TO D/C. PT APPETITE LESS THAN YESTERDAY BUT DID EAT AFTER DISCUSSING POSSIBLE D/C. PT HAD HICCUPS THROUGHOUT MOST OF TODAY. PT TO D/C TOMORROW PENDING POWERGLIDE ORDER TO RETURN TO [facility]. PT ASLEEP MOST OF DAY. BED IN LOWEST POSITION,CALL LIGHT IN REACH, WITH SIDE RAILS UP.
--- NOTE | 2022-01-17 06:26 | NUR ---
A&O TO SELF. REORIENTED TO PLACE/TIME/EVENT. V/S WNL. HELD SCHEDULED METROPOLOL. ROLLS WELL. 2-ASSIST. INCONTINENT OF BOWEL/URINE. NO BM THIS SHIFT. BED ALARM AT ALL TIMES. INCONTINENT OF URINE X3. POWERGLIDE TO R) UPPER ARM. WILL CONTINUE TO MONITOR.
[2022-01-17 11:31] LABS: Influenza A, PCR NEGATIVE (NEGATIVE); Influenza B, PCR NEGATIVE (NEGATIVE); Resp Syncytial Virus, PCR NEGATIVE (NEGATIVE); SARS-Cov-2 (COVID-19) PCR, MMC NEGATIVE (NEGATIVE)
--- NOTE | 2022-01-17 15:23 | NUR ---
SHIFT SUMMARY- PT AGITATED WHEN DISTURBED BUT EASLY REDIRECTED. VSS. PT A@O X2. PT SLEEPS MOST OF SHIFT. APPETITE POOR, REFUSED MOST OF BREAKFAST AND LUNCH. PT EAGER TO BE D/C'D TO SNF. PT RESTING WITH CALL LIGHT IN REACH, BED ALARM ON, AND SIDE RAILS UP. D/C- PT TRANSPORTED BACK TO SNF WHERE HE LIVED PRIOR. AMBULANCE CAME TO TRANSPORT @1515. ALL BELONGINGS WITH PT ON GURNEY WITH DEPARTURE.
== END 2022-01-17 15:20 | DRG 871 ==
LOC: ER 12:28 → MEDS 17:27
PROVIDERS: Emergency Medicine; Internal Medicine; ADMIT Internal Medicine
DX: A41.51 Sepsis due to Escherichia coli [E. coli] (principal); G93.41 Metabolic encephalopathy; N39.0 Urinary tract infection, site not specified; I69.354 Hemiplegia and hemiparesis following cerebral infarction affecting left non-dominant side; Z20.822 Contact with and (suspected) exposure to COVID-19; Z66 Do not resuscitate; N18.2 Chronic kidney disease, stage 2 (mild); Z98.890 Other specified postprocedural states; Z79.82 Long term (current) use of aspirin; Z79.899 Other long term (current) drug therapy; Z87.891 Personal history of nicotine dependence; Z74.01 Bed confinement status
CPT/HCPCS: 0241U; 36415; 51701; 71045; 80048; 80053; 81001; 85025; 87040; 87077; 87086; 87186; 93005; 93010; 96374-59; 99285-25; A9270; C1751; J0696; J1650; J2185; J7030; U0004

== ENCOUNTER → 2022-01-13 | Outpatient (CLI) | payer MEDICARE, OTHER ==
[2022-01-13 06:40] LABS: Hematocrit 48.9 % (37.0-53.0); Hemoglobin 16.2 g/dL (13.5-17.5); Mean Corpuscular HGB 29.5 pg (26.0-34.0); Mean Corpuscular HGB Conc 33.1 g/dL (31.5-36.5); Mean Corpuscular Volume 89 fL (80-100); Mean Platelet Volume 12.6 fL (9.1-12.4); Platelet Count 225 K/mm3 (150-400); RDW Standard Deviation 45.6 fL (35.1-46.3); White Blood Cell Count 31.05 K/mm3 (4.00-11.30)
[2022-01-13 07:04] LABS: Albumin, Blood 3.2 g/dL (3.4-5.0); Albumin/Globulin Ratio 0.6 (0.8-1.8); Bilirubin, Total 0.7 mg/dL (0.1-1.0); Bun/Creatinine Ratio 21.4 (12.0-20.0); Calcium, Blood 9.4 mg/dL (8.5-10.1); Creatinine, Blood 1.12 mg/dL (0.60-1.20); Globulin, Blood 5.1 g/dL (2.2-4.0); Total Protein, Blood 8.3 g/dL (6.4-8.2)
== END | disposition home or self-care (01) ==
LOC: LAB RH 05:00 → EDSTATUS 12:57
PROVIDERS: Internal Medicine
DX: R11.2 Nausea with vomiting, unspecified (principal)
CPT/HCPCS: 80053; 85027

== ENCOUNTER → 2022-01-22 | Outpatient (CLI) | payer MEDICARE, OTHER ==
[~2022-01-22] MED LIST changes: +ACET325 PO; +MEROPENEM1 G1 IV; +METO25 PO; +ONDA4ODT MM; +VISBIOME 112.51 EACH PO
[2022-01-22 15:50] LABS: Hematocrit 39.7 % (37.0-53.0); Mean Corpuscular HGB 29.1 pg (26.0-34.0); Mean Corpuscular HGB Conc 32.7 g/dL (31.5-36.5); Mean Corpuscular Volume 89 fL (80-100); Mean Platelet Volume 11.4 fL (9.1-12.4); Platelet Count 326 K/mm3 (150-400); RDW Coefficient Variation 13.8 % (11.7-14.2); RDW Standard Deviation 45.1 fL (35.1-46.3); Red Blood Cell Count 4.47 M/mm3 (4.30-5.90); White Blood Cell Count 10.68 K/mm3 (4.00-11.30)
[2022-01-22 16:42] LABS: Bun/Creatinine Ratio 21.6 (12.0-20.0); Calcium, Blood 8.6 mg/dL (8.5-10.1); Creatinine, Blood 0.93 mg/dL (0.60-1.20)
== END | disposition home or self-care (01) ==
LOC: EDSTATUS 12:58 → LAB RH 14:20
PROVIDERS: Internal Medicine
DX: I63.9 Cerebral infarction, unspecified (principal); N18.30 Chronic kidney disease, stage 3 unspecified
CPT/HCPCS: 80048; 85027

== ENCOUNTER 2024-03-19 00:07 | Emergency (ER) | payer MEDICARE, OTHER ==
[~2024-03-19] VITALS: Ht 172.7 cm; Wt 61.2 kg
[2024-03-19 05:00] VITALS: BP 105/72
== END 2024-03-19 05:27 | disposition home or self-care (01) ==
LOC: ER 00:07
DX: F12.129 Cannabis abuse with intoxication, unspecified (principal); I12.9 Hypertensive chronic kidney disease with stage 1 through stage 4 chronic kidney disease, or unspecified chronic kidney disease; N18.30 Chronic kidney disease, stage 3 unspecified; Z87.891 Personal history of nicotine dependence; Z86.73 Personal history of transient ischemic attack (TIA), and cerebral infarction without residual deficits; Z79.899 Other long term (current) drug therapy
CPT/HCPCS: 99284

== ENCOUNTER 2024-10-26 03:55 | Emergency (ER) | payer MEDICARE, OTHER ==
[~2024-10-26] VITALS: Ht 170.2 cm; Wt 45.4 kg
[2024-10-26 10:48] VITALS: BP 78/62
== END 2024-10-26 10:49 | disposition home or self-care (01) ==
LOC: ER 03:55
DX: R33.9 Retention of urine, unspecified (principal); R31.9 Hematuria, unspecified; I12.9 Hypertensive chronic kidney disease with stage 1 through stage 4 chronic kidney disease, or unspecified chronic kidney disease; N18.30 Chronic kidney disease, stage 3 unspecified; Z87.891 Personal history of nicotine dependence; Z86.73 Personal history of transient ischemic attack (TIA), and cerebral infarction without residual deficits; Z79.899 Other long term (current) drug therapy
CPT/HCPCS: 51798; 99284-25; A6590